=== PATIENT | female | born 1975 | race Caucasian/White ===

== ENCOUNTER → 2018-01-28 | Outpatient (CLI) | payer BC, OTHER ==
[~2018-01-28] MED LIST: BUSP15TA70 PO; CETI10TA10 PO; FERR1TAB62 MT; LEVO50TA6; MTR600X PO; PRENTAB26 PO
== END | disposition home or self-care (01) ==
LOC: C.RDSM 10:18
PROVIDERS: ATTEND Orthopaedic Surgery
DX: M25.562 Pain in left knee (principal)